=== PATIENT | male | born 1960 | race Caucasian/White ===

== ENCOUNTER → 2019-01-12 09:48 | Outpatient (CLI) | payer MEDICAID ==
--- NOTE | 2019-01-18 14:07 | ST ---
PATIENT:LINDA FERNANDES MEDICAL RECORD: [id number] SEX: M LOCATION:[facility] ORDER #: ADMISSION DATE: 01/12/19 AGE OF PATIENT: 58 REFERRING PHYSICIAN: INTERPRETING PHYSICIAN: ALBAN SHIELDS MD DATE OF SERVICE: 01/12/2019 PROCEDURE: Nuclear stress test. INDICATION: Angina, shortness of breath, hypertension. TECHNIQUE: He was exercised on standard Lexiscan protocol with 33 mCi of sestamibi injected at peak stress, 11 mCi used previously for rest images. FINDINGS: Gated SPECT reveals preserved ejection fraction at 74% with good wall motion and thickening and brightening throughout all segments. SPECT imaging Cardiolite was used as myocardial fusion agent. There is homogeneous uptake throughout all segments at rest and stress with no evidence of inducible ischemia or previous infarction. OVERALL IMPRESSION: 1. This is a normal nuclear stress test with no evidence of inducible ischemia or previous infarction. 2. Gated SPECT reveals a preserved ejection fraction at 74%. In this patient with ongoing symptomatology, the current scan does not suggest the presence of hemodynamically significant coronary artery disease. Evaluate noncardiac etiology of chest pain. TRANSINT:[id number] Voice Confirmation ID: [id number] DOCUMENT ID: [id number] ALBAN SHIELDS MD at 1407 CC: DALIA CAMPBELL MD [id number] DICTATION DATE: 01/13/19 1450 RESEARCH ARCHAEOLOGIST: 01/14/19 0747 [facility] CLI 01/12/19 [id number] [place] [address]
--- NOTE | 2019-01-18 14:07 | EC ---
PATIENT:LINDA FERNANDES DATE OF SERVICE: 01/12/19 SEX: M MEDICAL RECORD: [id number] DATE OF : 64 [facility] AGE OF PAT[facility]: 58 ADMISSION DATE: 01/12/19 REFERRING PHYSICIAN: INTERPRETING PHYSICIAN: ALBAN DUNN MD ECHOCARDIOGRAM REPORT ECHO CHARGES 4 ECHO COMPLETE Date: 01/12/19 CLINICAL DIAGNOSIS: ANGINA/SOB/MCCLENDON H/O HTN ECHOCARDIOGRAPHIC MEASUREMENTS (adult normal given) AC root (d.<3.7cm) 3.2 cm LV Septum d (<1.2 cm> 1.4 cm Valve Excursion 1.4 cm LV Septum (systole) 1.7 cm Left Atria (s.<4.0cm> 5.0 cm LVPW d(<1.2cm) 1.1 cm RV (d.<2.3cm) 3.3 cm LVPW (sytole) 1.6 cm LV diastole(<5.6CM) 6.0 cm MV E-F(>70mm/sec) cm LV systole 3.9 cm LVOT Diameter 1.9 cm MV exc.(>10mm) cm Est.ejection fraction (50-75%) % DOPPLER: LVIT cm/sec A 63.0 cm/sec E 76.0 cm/sec LA cm/sec RVSP 19.0 mmHg LVOT 104 cm/sec AOP1/2T m/s Asc. Ao 174 cm/sec RVOT 60.0 cm/sec RA cm/sec PA 81.0 cm/sec AV Gradient Peak 12.1 mmHg AV Mean 6.7 mmHg AV Area 1.6 cm MV Gradient Peak 5.0 mmHg MV Mean 1.7 mmHg MV Area cm COMMENTS: OP - HC [employer]ases [employer] Land Supervisor: Alena GUILLEN CORA Front Line Leader: 1 Dr. Dunn TAPE# PACS Pericardial Effusion N DATE OF SERVICE: PROCEDURE: Echocardiogram. FINDINGS: 1. Left ventricular chamber size is within normal limits. Left ventricular systolic function is normal. Overall ejection fraction estimated at 60%. 2. Left atrium is enlarged at 5.0 cm. Right atrium and right ventricular chamber sizes are as well [id number] dilated. 3. Valvular structures have normal structure and motion. ECHOCARDIOGRAM REPORT [id number] LINDA FERNANDES 4. Doppler interrogation reveals no significant valvular insufficiency or stenosis and pulmonary systolic pressure is elevated estimated at 19 mmHg. 5. No evidence of pericardial effusion or left ventricular thrombus. TRANSINT:[id number] Voice Confirmation ID: [id number] DOCUMENT ID: [id number] ALBAN DUNN MD at 1407 CC: [id number] DICTATION DATE: 01/13/19 1054 CONSUMER SERVICES ADVISOR: 01/13/19 1134 [facility] CLI 01/12/19 [id number] [place] [address]
== END | disposition home or self-care (01) ==
LOC: D.HCCARDIO 01-10 11:00 → D.HCCECHO 01-10 11:30
PROVIDERS: ATTEND Internal Medicine Interventional Cardiology
DX: I20.9 Angina pectoris, unspecified (principal); R06.00 Dyspnea, unspecified